=== PATIENT | female | born 2000 ===

== ENCOUNTER 2020-12-29 06:55 | Emergency (ER) | payer SELFPAY ==
[2020-12-29 07:00] VITALS: BP 120/77
--- NOTE | 2020-12-29 07:23 | Emergency Department Report ---
HPI - General Chief Complaint: Sore Throat Time Seen by Provider: 12/29/20 07:12 - HPI HPI: MSE 7 Patient is a 20-year-old female present with a chief complaint of sore throat. Patient states for the past 2 days she has had pain in which he believes is swelling in her tonsils bilaterally. Patient states she feels congested in her throat. Patient states she then developed pain in the right ear. Patient denies history of fever or cough. Patient states she has not been vaccinated against Covid. ED Past Medical Hx - Past Medical History Previous Medical History?: No - Surgical History Past Surgical History?: No - Family History Family history: no significant - Social History Smoking Status: Never Smoker Substance Use Type: None (Denies illicit drug use) - Medications Home Medications: Home Medications Medication Instructions Recorded Confirmed Last Taken Type Amoxicillin [Amoxicillin TAB] 875 mg PO BID #20 tablet 12/29/20 Unknown Rx HYDROcodone/APAP 5-325 [[place] 1 - 2 each PO Q6HR PRN #7 tablet 12/29/20 Unknown Rx 5/325] Ibuprofen [Motrin 800 MG tab] 800 mg PO Q8HR PRN #20 tablet 12/29/20 Unknown Rx ED Review of Systems ROS: Stated complaint: TONSILS SWOLLEN/HERBERT Other details as noted in HPI Constitutional: denies: fever Eyes: denies: eye pain ENT: throat pain Respiratory: denies: cough Endocrine: no symptoms reported Physical Exam - Physical Exam Vital Signs: Vital Signs 12/29/20 06:57 Temperature 99.8 F H Pulse Rate 82 Respiratory 20 Rate Blood Pressure 120/77 [Right] O2 Sat by Pulse 98 Oximetry Physical Exam: GENERAL: The patient is well-developed well-nourished female sitting on exam table not appearing to be in acute distress. [] HEENT: Normocephalic. Atraumatic. Extraocular motions are intact. 1+ tonsils bilaterally with mild erythema bilaterally. No exudate appreciated NECK: Supple. No meningitic signs are noted. There is tender cervical adenop athy noted. No stridor CHEST/LUNGS: There is no respiratory distress noted. SKIN: There is no diaphoresis. NEURO: The patient is awake, alert, and oriented. The patient is cooperative. The patient has normal speech. GCS 15 MUSCULOSKELETAL: There is no evidence of acute injury. ED Course Vital Signs 12/29/20 06:57 Temperature 99.8 F H Pulse Rate 82 Respiratory 20 Rate Blood Pressure 120/77 [Right] O2 Sat by Pulse 98 Oximetry ED Medical Decision Making - Differential Diagnosis Tonsillitis Critical care attestation.: If time is entered above; I have spent that time in minutes in the direct care of this critically ill patient, excluding procedure time. ED Disposition Clinical Impression: Acute tonsillitis Disposition: HOME / SELF CARE / HOMELESS Is pt being admited?: No Does the pt Need Aspirin: No Condition: Stable Instructions: Tonsillitis, [id number] Additional Instructions: Return to the emergency department should you develop worsening symptoms, inability to tolerate food or liquids, high fever or any other concerns Prescriptions: Amoxicillin [Amoxicillin TAB] 875 mg PO BID #20 tablet Ibuprofen [Motrin 800 MG tab] 800 mg PO Q8HR PRN #20 tablet PRN Reason: Pain, Moderate (4-6) HYDROcodone/APAP 5-325 [[place] 5/325] 1 - 2 each PO Q6HR PRN #7 tablet PRN Reason: Pain Referrals: TREVOR MITCHELL MD [Staff Physician] - 3-5 Days (Dr. Mitchell is an salvage determiner (ear nose and throat doctor). Please follow-up with him for further evaluation if your symptoms persist) [facility] [Provider Group] - 3-5 Days ([facility] provides primary care. Please follow-up with him to be established as a patient) Time of Disposition: 07:23
== END 2020-12-29 07:40 | disposition home or self-care (01) ==
LOC: ED 06:55
DX: J03.90 Acute tonsillitis, unspecified (principal)
CPT/HCPCS: 99281